=== PATIENT | female | born 1980 | race Caucasian/White ===

== ENCOUNTER 2017-03-31 14:33 | Emergency (ER) | payer MEDICAID ==
[2017-03-31] MEDS ORDERED: Sodium Chloride 0.9% 1,000 ML IV ONE (15:13)
--- NOTE | 2017-03-31 15:20 | C.PDOC ---
History Of Present Illness Patient is a 36 y/o female that presents to the ED for evaluation of constant right flank and lower abdominal pain associated with nausea that began 2 hours ago. Otherwise, denies any fever, dysuria, hematuria, urinary frequency, vomiting, diarrhea, fever, chills, or any other associated symptoms at this time. LMP: 03/20/17 Time Seen by Provider: 03/31/17 15:09 Chief Complaint (Nursing): Abdominal Pain History Per: Patient History/Exam Limitations: no limitations Onset/Duration Of Symptoms: Hrs (2) Current Symptoms Are (Timing): Still Present Location Of Pain/Discomfort: RLQ Radiation Of Pain To:: Flank (right) Quality Of Discomfort: "Pain" Associated Symptoms: Nausea, Back Pain. denies: Fever, Chills, Vomiting, Diarrhea, Loss Of Appetite, Chest Pain, Constipation, Urinary Symptoms Exacerbating Factors: None Alleviating Factors: None Recent travel outside of the [place]: No Additional History Per: Patient Abnormal Vaginal Bleeding: No Last Menstral Period: 03/20/17 Past Medical History Reviewed: Historical Data, Nursing Documentation, Vital Signs Vital Signs: Last Vital Signs Temp 97.9 F 03/31/17 16:57 Pulse 56 L 03/31/17 16:57 Resp 18 03/31/17 16:57 BP 126/79 03/31/17 16:57 Pulse Ox 99 03/31/17 17:02 Family History: States: No Known Family Hx - Social History Hx Alcohol Use: No Hx Substance Use: No Review Of Systems Except As Marked, All Systems Reviewed And Found Negative. Constitutional: Negative for: Fever, Chills Gastrointestinal: Positive for: Nausea, Abdominal Pain. Negative for: Vomiting , Diarrhea, Constipation Genitourinary: Negative for: Dysuria, Frequency, Incontinence, Hematuria, Vaginal Discharge, Vaginal Bleeding Musculoskeletal: Positive for: Back Pain (right flank) Physical Exam - Physical Exam Appears: Non-toxic, Other (uncomfortable) Skin: Normal Color, Warm, Dry Head: Atraumatic, Normacephalic Eye(s): bilateral: Normal Inspection, EOMI Neck: Normal ROM, Supple Chest: Symmetrical, No Tenderness Cardiovascular: Rhythm Regular, No Murmur Respiratory: Normal Breath Sounds, No Rales, No Rhonchi, No Wheezing Gastrointestinal/Abdominal: Soft, No Tenderness, No Guarding, No Rebound Back: Normal Inspection, No CVA Tenderness, No Vertebral Tenderness, No Paraspinal Tenderness Extremity: Normal ROM, No Deformity Neurological/Psych: Oriented x3, Normal Speech, Normal Cognition ED Course And Treatment - Laboratory Results Result Diagrams: 03/31/17 15:19 03/31/17 15:19 Lab Interpretation: No Acute Changes O2 Sat by Pulse Oximetry: 99 (on RA) Pulse Ox Interpretation: Normal - CT Scan/US Abd & pelvis CT Other Rad Studies (CT/US): Read By Radiologist, Radiology Report Reviewed CT/US Interpretation: FINDINGS: LOWER THORAX: The lung bases are clear. LIVER : The liver is normal in size. No gross lesion or ductal dilatation. GALLBLADDER AND BILE DUCTS: The gallbladder is contracted. PANCREAS: Normal in size. No gross lesion or ductal dilatation. SPLEEN: Normal in size. ADRENALS: Normal in size without discrete nodule. KIDNEYS AND URETERS: Both kidneys are normal in size. There is a 3 mm nonobstructing stone in the interpolar region of the right kidney. There is mild dilatation of the proximal ureteral and mild fullness in the right collecting system. An apparent 4 mm calcification along the course of the ureteral in the right hemipelvis could represent distal ureteral stone. VASCULATURE: No aortic aneurysm. BOWEL: The small bowel loops are normal in caliber. No obstruction. No gross mural thickening. The colon is unremarkable. APPENDIX: Normal appendix. PERITONEUM : No free fluid. No free air. LYMPH NODES: No enlarged lymph nodes. BLADDER : Decompressed. There are small phleboliths in the pelvis. REPRODUCTIVE: The uterus is normal in size. BONES: No acute fracture. Within normal limits for the patient's age. OTHER FINDINGS: None. IMPRESSION: 1. Findings are most compatible with recent passage of a right renal stone. 4 mm calcification in the right hemipelvis along the course of the ureteral could represent a distal ureteral stone however evaluation is limited in the absence of a distended bladder. 2. 3 mm nonobstructing stone in the interpolar region of the right kidney. Progress Note: Labs, abd & pelvis CT ordered and reviewed. Patient was given IV fluids, Toradol, and Zofran in the ER. Findings consistent with renal colic and kidney stone. On re-exam, patient is resting comfortably in bed, and reports pain mostly improved, nausea resolved. Abdomen remains soft and non- tender. Discussed results with patient, and copy of report was provided. Patient feels comfortable going home and will be discharged. Patient given follow up instructions. Instructed to return to ER if symptoms worsen or new symptoms arise. Disposition Counseled Patient/Family Regarding: Diagnosis, Need For Followup, Rx Given - Disposition Referrals: Kalie Calvo MD [Medical Doctor] - Disposition: HOME/ ROUTINE Disposition Time: 16:56 Condition: IMPROVED Additional Instructions: CT mostrar el paso de la mir del rin Es importante que samuel lquidos y tome medicamentos vicky los prximos thomas El dolor puede continuar vicky horas, luigi medicamentos para el dolor segn sea necesario Seguimiento con urlogo Prescriptions: Ciprofloxacin [Cipro] 1 tab PO BID #6 tab Ibuprofen [Motrin] 600 mg PO Q8 #30 tab Tamsulosin [Flomax] 0.4 mg PO DAILY #10 cap Instructions: Kidney Stones (DC) Print Language: GEORGIAN - POA Present On Arrival: None - Clinical Impression Clinical Impression: Kidney stone on right side - PA / BOOK PACKER / Resident Statement MD/DO has reviewed & agrees with the documentation as recorded. - Scribe Statement The provider has reviewed the documentation as recorded by the Hazel Adorno All medical record entries made by the Hazel were at my direction and personally dictated by me. I have reviewed the chart and agree that the record accurately reflects my personal performance of the history, physical exam, medical decision making, and the department course for this patient. I have also personally directed, reviewed, and agree with the discharge instructions and disposition.
[2017-03-31 15:22] LABS: BASO # 0.1 K/uL (0.0-0.2); BASO % 0.4 % (0.0-2.0); EOS # 0.1 K/uL (0.0-0.7); EOS % 0.7 % (0.0-4.0); HEMATOCRIT 35.6 % (34.0-47.0); MEAN CELL VOLUME 91.2 fL (81.0-99.0); MEAN CORPUSCULAR HEMOGLOBIN 29.2 pg (27.0-31.0); MEAN PLATELET VOLUME 10.8 fL (7.2-11.7); MONO # 0.8 K/uL (0.0-0.8); MONO % 6.9 % (0.0-10.0); RED CELL DISTRIBUTION WIDTH 13.9 % (11.5-14.5); WHITE BLOOD COUNT 12.1 K/uL (4.8-10.8)
[2017-03-31] MEDS ORDERED: Sodium Chloride 0.9% 1,000 ML ONE (15:24)
[2017-03-31 15:31] LABS: CHLORIDE 102 mmol/L (98-107)
[2017-03-31 15:32] LABS: POTASSIUM 2.9 mmol/L (3.6-5.2); SODIUM 136 mmol/L (132-148)
[2017-03-31 15:34] LABS: ALB/GLOB RATIO 1.3 (1.0-2.1); ALKALINE PHOSPHATASE 80 U/L (38-126); ALT/SGPT 13 U/L (9-52); AST/SGOT 14 U/L (14-36); BILIRUBIN,TOTAL 0.4 mg/dL (0.2-1.3); BLOOD UREA NITROGEN 8 mg/dL (7-17); CARBON DIOXIDE 21 mmol/L (22-30); GFR AFRICAN-AMERICAN > 60; GLUCOSE,RANDOM 127 mg/dL (65-105); RBC URINE 2 /hpf (0-3); TOTAL PROTEIN 7.8 g/dL (6.3-8.3); URINE BACTERIA RARE (<OCC); URINE BILIRUBIN NEGATIVE (NEGATIVE); URINE BLOOD NEGATIVE (NEGATIVE); URINE COLOR Yellow (YELLOW); URINE GLUCOSE (UA) NORMAL (Normal); URINE KETONE 1+ mg/dL (NEGATIVE); URINE LEUKOCYTE ESTERASE TRACE Leu/uL (Negative); URINE PROTEIN NEGATIVE (NEGATIVE); URINE UROBILINOGEN NORMAL mg/dL (0.2-1.0); WBC URINE 1 /hpf (0-5)
[2017-03-31] MEDS ORDERED: Potassium Chloride 20 mEq ER Tab PO STA (16:18)
[2017-03-31] MEDS ORDERED: Potassium Chloride 20 mEq ER Tab PO ONE (16:25)
--- NOTE | 2017-03-31 16:52 | CT ---
PROCEDURE: CT Abdomen and Pelvis without intravenous contrast HISTORY: right flank and RLQ pain COMPARISON: None. TECHNIQUE: CT scan of the abdomen and pelvis was performed without oral or intravenous contrast. Coronal and sagittal reformatted images were obtained. Radiation dose: Total exam DLP = 296.15 mGy-cm. This CT exam was performed using one or more of the following dose reduction techniques: Automated exposure control, adjustment of the mA and/or kV according to patient size, and/or use of iterative reconstruction technique. FINDINGS: LOWER THORAX: The lung bases are clear. LIVER: The liver is normal in size. No gross lesion or ductal dilatation. GALLBLADDER AND BILE DUCTS: The gallbladder is contracted. PANCREAS: Normal in size. No gross lesion or ductal dilatation. SPLEEN: Normal in size. ADRENALS: Normal in size without discrete nodule. KIDNEYS AND URETERS: Both kidneys are normal in size. There is a 3 mm nonobstructing stone in the interpolar region of the right kidney. There is mild dilatation of the proximal ureteral and mild fullness in the right collecting system. An apparent 4 mm calcification along the course of the ureteral in the right hemipelvis could represent distal ureteral stone VASCULATURE: No aortic aneurysm. BOWEL: The small bowel loops are normal in caliber. No obstruction. No gross mural thickening. The colon is unremarkable. APPENDIX: Normal appendix. PERITONEUM: No free fluid. No free air. LYMPH NODES: No enlarged lymph nodes. BLADDER: Decompressed. There are small phleboliths in the pelvis. REPRODUCTIVE: The uterus is normal in size. BONES: No acute fracture. Within normal limits for the patient's age. OTHER FINDINGS: None. IMPRESSION: 1. Findings are most compatible with recent passage of a right renal stone. 4 mm calcification in the right hemipelvis along the course of the ureteral could represent a distal ureteral stone however evaluation is limited in the absence of a distended bladder. 2. 3 mm nonobstructing stone in the interpolar region of the right kidney.
[2017-03-31 16:58] VITALS: BP 126/79; PULSE 56; RESP 18; TEMP 97.9; O2SAT 99
== END 2017-03-31 17:20 | disposition home or self-care (01) ==
LOC: C.ER 14:33
DX: N20.0 Calculus of kidney (principal)
CPT/HCPCS: 74176; 80053; 81001; 84703; 85025; 96361; 96374; 96375; 99285; J1885; J2405; J7040